=== PATIENT | female | born 1950 | race Caucasian/White ===

== ENCOUNTER 2019-09-09 12:50 | Outpatient (CLI) | payer MEDICARE ==
[2019-09-09 13:28] LABS: BASOPHILS % (AUTO) 0.7 % (0-1); EOSINOPHILS # (AUTO) 0.2 X10'3 (0-0.9); HEMATOCRIT 41.5 % (35.0-45.0); HEMOGLOBIN 13.5 g/dl (12.0-16.0); LYMPHOCYTES # (AUTO) 2.3 X10'3 (1.1-4.8); LYMPHOCYTES % (AUTO) 35.5 % (21-51); MEAN CORPUSCULAR HGB CONC 32.4 g/dL (33.0-36.5); MEAN CORPUSCULAR VOLUME 86.2 FL (78-98); MEAN PLATELET VOLUME 8.4 FL (7.4-10.4); MONOCYTES # (AUTO) 0.6 X10'3 (0-0.9); MONOCYTES % (AUTO) 8.9 % (2-12); NEUTROPHILS # (AUTO) 3.3 X10'3 (1.8-7.7); NEUTROPHILS % (AUTO) 51.9 % (42-75); PLATELET COUNT 273 X10'3 (140-440); RED BLOOD COUNT 4.82 X10'6 (4.20-5.60); RED CELL DISTRIBUTION WIDTH 14.1 % (11.5-14.5); WHITE BLOOD COUNT 6.4 X10'3 (4.5-11.0)
[2019-09-09 13:43] LABS: PARTIAL THROMBOPLASTIN TIME 28 SECONDS (22-32)
[2019-09-09 13:59] LABS: ALBUMIN 3.6 G/DL (3.4-5.0); ANION GAP 9 (8-16); BLOOD UREA NITROGEN 20 MG/DL (7-18); BUN/CREATININE RATIO 30.3 (6.6-38.0); CALCIUM 9.3 MG/DL (8.5-10.1); CHLORIDE 104 MMOL/L (99-107); CREATININE 0.66 MG/DL (0.40-0.90); GLUCOSE 116 MG/DL (70-104); POTASSIUM 4.4 MMOL/L (3.5-5.1); SODIUM 139 MMOL/L (135-145); TOTAL CARBON DIOXIDE 26.3 MMOL/L (24-32); eGFR 89 ML/MIN
== END 2019-09-09 23:59 | disposition home or self-care (01) ==
LOC: LAB 12:50
PROVIDERS: ATTEND Internal Medicine Interventional Cardiology
DX: Z79.01 Long term (current) use of anticoagulants (principal)
CPT/HCPCS: 36415; 80048; 85025; 85610; 85730

== ENCOUNTER 2019-09-14 09:07 | Day surgery (SDC) | payer MEDICARE ==
[~2019-09-14] VITALS: Ht 170.2 cm; Wt 116.5 kg
[2019-09-14] VITALS (8 sets, daily range): BP systolic 120–170; BP diastolic 61–90
[2019-09-14] MEDS ORDERED: LORazepam 0.5 MG tablet PO PRN ×2 (09:40)
[2019-09-14] MEDS ORDERED: normal saline 1000ml 1,000 ML IV SCH (09:40)
[2019-09-14] MEDS ORDERED: diphenhydrAMINE 25mg capsule PO PRN (09:40)
[2019-09-14] MEDS ORDERED: TRAM50TA2 PO (09:48)
[2019-09-14] MEDS ORDERED: ASPI81TA52 PO (09:48)
[2019-09-14] MEDS ORDERED: LEVO125T PO (09:48)
[2019-09-14] MEDS ORDERED: MELO7.5T12 PO (09:48)
[2019-09-14] MEDS ORDERED: HYDR-3965 PO (09:48)
[2019-09-14] MEDS ORDERED: ATR0.5NEB INH (09:48)
[2019-09-14] MEDS ORDERED: LIOT25TA6 PO (09:48)
[2019-09-14] MEDS ORDERED: midazolam 2 mg/2 ml injection ONE (10:53)
[2019-09-14] MEDS ORDERED: fentaNYL/PF 50MCG/1 ML 2ML syringe ONE (10:54)
[2019-09-14] MEDS ORDERED: iohexol 350MG/ML 100ml bottle IV ONE (10:55)
[2019-09-14] MEDS ORDERED: LIDOcaine 1% (10mg/ml)w/preservative injection 20ml MDV ONE (10:55)
[2019-09-14] MEDS ORDERED: nitroGLYCERIN-Tridil 50MG/D5W 250 ML IV ONE (11:12)
[2019-09-14] MEDS ORDERED: heparin 1,000unit/ml 10ml vial 10 ML ONE (11:12)
[2019-09-14] MEDS ORDERED: verapamil 2.5 mg/ml inj IV ONE (11:13)
[2019-09-14] MEDS ORDERED: ondansetron/PF 4mg/2ml inj IV PRN (12:15)
[2019-09-14] MEDS ORDERED: proCHLORperazine 10 MG/2 ml inj IV PRN (12:15)
[2019-09-14] MEDS ORDERED: HYDROcodone/acetaminophen 5mg/325mg tablet PO PRN (12:15)
[2019-09-14] MEDS ORDERED: OXAZEpam 15mg capsule PO PRN (12:15)
[2019-09-14] MEDS ORDERED: HYDROcodone/acetaminophen 10/325mg tab PO PRN (12:15)
[2019-09-14] MEDS ORDERED: nitroGLYCERIN 0.4mg SUBLingual tab SL PRN (12:15)
== END 2019-09-14 15:05 | disposition home or self-care (01) ==
LOC: SSTAY O 09:07 → MED 3N 09:10 → SSTAY O 15:05
PROVIDERS: ATTEND Internal Medicine Interventional Cardiology
DX: R94.39 Abnormal result of other cardiovascular function study (principal); I25.10 Atherosclerotic heart disease of native coronary artery without angina pectoris; E03.9 Hypothyroidism, unspecified; Z88.0 Allergy status to penicillin; Z88.8 Allergy status to other drugs, medicaments and biological substances; Z79.899 Other long term (current) drug therapy; Z79.82 Long term (current) use of aspirin
CPT/HCPCS: 93005; 93458; 99152; C1769; C1894; J1644; J2001; J2250; J3010; J7030; Q0163; Q9967; 76937; A4620; A5120; GO378; J3490